=== PATIENT | female | born 1985 | race Native Hawaiian/Other Pacific Islander ===

== ENCOUNTER 2016-08-31 17:31 | Observation (INO) | payer OTHER ==
[~2016-08-31] VITALS: Ht 180.3 cm; Wt 187.3 kg
[~2016-08-31 17:31] MED LIST: ALBU90AE13 INH; ALPR0.2566 PO; AMBIEN5 MG PO; ATEN50TA36 PO; BREO ELLIPTA 101 INH IN; BUDE1AER5 INH; BUME1TAB19 PO; CELEXA10 MG PO; CETI10TA PO; HYDR-2748 PO; HYDR25TA60 PO; LORTAB 10-325 M1 TAB PO; METF100038 OR; MONT10TA PO; PRED10TA27 PO; SPIR25TA66 PO; TOPAMAX25 MG OR; Z-PAK PO
--- NOTE | 2016-08-31 20:56 | NUR ---
ACCESSED PT'S PROGRESS WITH CONTINOUS NEB. BBS;EXP. WHEEZING. HR 132, SPO2 93% ON ROOM AIR. PT HAD JUST AMBULATED FROM USING THE BATHROOM. WILL CONTINUE TO MONITOR PTS PROGRESS.
[2016-08-31] MEDS ORDERED: TRAZ100T OR (22:56)
[2016-08-31 23:15] LABS: PLATELET COUNT 355 K/uL (152-353)
[2016-08-31 23:31] LABS: POTASSIUM 3.6 mmol/L (3.6-5.2); SODIUM 140 mmol/L (136-145)
[2016-09-01 00:36] VITALS: BP 119/72; TEMP 98.1; Ht 180.3 cm; Wt 187.3 kg
--- NOTE | 2016-09-01 01:01 | NUR ---
RESTARTED CONT NEB WITH 250 NS AND 10 UD DUONEB. HR 94, SPO2 93%. CONT TO MONITOR PTS PROGRESS.
[2016-09-01 04:00] VITALS: BP 116/58; TEMP 98.9
--- NOTE | 2016-09-01 04:49 | NUR ---
NO NOTED RESP. DISTRESS. SPO2 95%, HR 93%. BBS:MILD EXP. WHEEZING.
[2016-09-01 06:29] LABS: PLATELET COUNT 325 K/uL (152-353)
[2016-09-01 06:35] LABS: POTASSIUM 3.8 mmol/L (3.6-5.2)
--- NOTE | 2016-09-01 07:49 | NUR ---
PATIENT REASSSED AN PATIENT CLEAR AT THIS TIME AN SATS ARE 93% ON ROOM AIR AND HEARTRATE 111. TREATMENTS TO BE CHANGED TO Q4 AND PRN FOR WHEEZING.
[2016-09-01 07:55] VITALS: BP 114/60; TEMP 97.5
[2016-09-01 12:00] VITALS: BP 119/64; TEMP 97.7
--- NOTE | 2016-09-01 13:08 | NUR ---
IV SITE D/C'D WITH TIP INTACT AND SITE CARE DONE. MEDS CALLED INTO [facility] PER MD ORDERS
--- NOTE | 2016-09-01 13:30 | NUR ---
D/C INSTRUCTIONS GIVEN TO PT AND SHE VERBALIZES UNDERSTANDING. PT OUT AMBULATORY WITH NAD. REFUSES W/C
== END 2016-09-01 13:45 | disposition home or self-care (01) ==
LOC: MED/SURG 17:31
PROVIDERS: ADMIT Family Medicine
DX: J45.901 Unspecified asthma with (acute) exacerbation (principal); E86.0 Dehydration; E66.01 Morbid (severe) obesity due to excess calories
CPT/HCPCS: 36591; 80053; 83735; 85027; 93005; 94644; 94645; 94664; 94760; 96365; 96366; 99220; G0378; G0379; J2930

== ENCOUNTER 2017-01-29 21:24 | Emergency (ER) | payer OTHER ==
[~2017-01-29] VITALS: Ht 180.3 cm; Wt 190.5 kg
[~2017-01-29 21:24] MED LIST changes: +TRAZ100T OR
[2017-01-29 22:14] LABS: PLATELET COUNT 326 K/uL (152-353)
[2017-01-29 22:22] VITALS: BP 148/96; TEMP 98.4
== END 2017-01-29 22:25 | disposition home or self-care (01) ==
LOC: ED 21:24
PROVIDERS: Emergency Medicine
DX: R10.2 Pelvic and perineal pain (principal); Z33.1 Pregnant state, incidental
CPT/HCPCS: 36415; 81000; 84702; 85027; 99283

== ENCOUNTER 2017-03-10 13:45 | Observation (INO) | payer OTHER ==
[~2017-03-10] VITALS: Ht 180.3 cm; Wt 196.4 kg
[2017-03-10 14:33] LABS: PLATELET COUNT 291 K/uL (152-353)
[2017-03-10 14:51] LABS: POTASSIUM 3.9 mmol/L (3.6-5.2); SODIUM 136 mmol/L (136-145)
--- NOTE | 2017-03-10 14:58 | NUR ---
PT TO BE TRANSFERRED TO [facility] IN [place], [place] TO A PERINATOLOGIST. REPORT GIVEN TO SARAH MCKINNEY AT [facility] IN LABOR AND DELIVERY. EMS NOTIFIED OF TRANSFER.
[2017-03-10 15:00] VITALS: BP 130/71; TEMP 98.2; Ht 180.3 cm; Wt 196.4 kg
--- NOTE | 2017-03-10 15:15 | NUR ---
1400 PT SENT OVER FROM [facility] FOR EXAC OF ASTHMA AND 24 WEEKS IUP . PT WILL BE TRANSFERRED TO [facility] WHEN BED AVAILBLE
[2017-03-10 16:00] VITALS: BP 132/71; TEMP 98.2
--- NOTE | 2017-03-10 16:03 | NUR ---
1600 PT LEFT VIA STRECTHER VIA EMS. PT AWAKE ALERT NO DISTRESS NOTED
== END 2017-03-10 16:00 | disposition short-term general hospital (02) ==
LOC: MED/SURG 13:45
PROVIDERS: ADMIT Family Medicine
DX: O99.512 Diseases of the respiratory system complicating pregnancy, second trimester (principal); O12.02 Gestational edema, second trimester; O30.002 Twin pregnancy, unspecified number of placenta and unspecified number of amniotic sacs, second trimester; E86.0 Dehydration; J45.41 Moderate persistent asthma with (acute) exacerbation; J32.9 Chronic sinusitis, unspecified
CPT/HCPCS: 36591; 80053; 85027; 94640; 94664; 96365; 96375; 99220; G0378; G0379; J2930

== ENCOUNTER 2017-09-13 11:08 | Observation (INO) | payer OTHER ==
[~2017-09-13] VITALS: Ht 154.9 cm; Wt 191.0 kg
--- NOTE | 2017-09-13 11:25 | NUR ---
Pt. ADMITTED TO ROOM 1112 C/O WHEEZING AND HAVING TROUBLE BREATHING. STATES THIS POLLEN IS GOING TO KILL ME.
[2017-09-13 15:55] LABS: PLATELET COUNT 484 K/uL (152-353)
[2017-09-13 16:05] LABS: POTASSIUM 3.6 mmol/L (3.6-5.2); SODIUM 134 mmol/L (136-145)
[2017-09-13 20:00] VITALS: BP 142/69; TEMP 99
[2017-09-13 21:17] VITALS: BP 112/65; TEMP 98.1; Ht 154.9 cm; Wt 191.0 kg
[2017-09-14] VITALS: BP 127/78; TEMP 98.1
[2017-09-14 04:00] VITALS: BP 144/93; TEMP 98.3
[2017-09-14 06:42] LABS: PLATELET COUNT 460 K/uL (152-353)
[2017-09-14 07:20] LABS: POTASSIUM 4.4 mmol/L (3.6-5.2)
[2017-09-14 08:00] VITALS: BP 121/78; TEMP 97.7
[2017-09-14 12:00] VITALS: BP 122/77; TEMP 97.7
[2017-09-14 16:00] VITALS: BP 138/53; TEMP 98.6
== END 2017-09-14 18:50 | disposition home or self-care (01) ==
LOC: MED/SURG 11:08
PROVIDERS: ADMIT Family Medicine
DX: J45.901 Unspecified asthma with (acute) exacerbation (principal)
CPT/HCPCS: 36600; 80053; 81000; 82308; 82550; 82805; 82948; 83605; 83735; 83874; 84100; 84484; 85027; 87040; 87804; 93005; 94640; 94644; 94645; 94664; 94760; 96365; 96366; 96375; 99220; G0378; G0379; J2930; J7120

== ENCOUNTER 2018-10-13 18:07 | Outpatient (CLI) | payer OTHER ==
[2018-10-13 18:24] LABS: PLATELET COUNT 433 K/uL (152-353)
[2018-10-13 18:39] LABS: POTASSIUM 3.9 mmol/L (3.6-5.2); SODIUM 139 mmol/L (136-145)
== END 2018-10-13 21:36 | disposition home or self-care (01) ==
LOC: LABW 18:07
PROVIDERS: Family Medicine
DX: R07.9 Chest pain, unspecified (principal)
CPT/HCPCS: 36415; 80053; 82550; 84484; 85027; 93005

== ENCOUNTER 2018-10-19 18:12 | Outpatient (CLI) | payer OTHER | END 2018-10-19 21:30 | disposition home or self-care (01) | LOC: INF 18:12 | DX: E86.0 Dehydration (principal) | CPT/HCPCS: 96360; 96361 ==

== ENCOUNTER 2018-10-20 09:56 | Outpatient (CLI) | payer OTHER ==
[2018-10-20 10:27] LABS: POTASSIUM 4.2 mmol/L (3.6-5.2); SODIUM 140 mmol/L (136-145)
[2018-10-20 12:26] LABS: PLATELET COUNT 409 K/uL (152-353)
== END 2018-10-20 20:30 | disposition home or self-care (01) ==
LOC: LABW 09:56
PROVIDERS: Nurse Practitioner Family
DX: R25.2 Cramp and spasm (principal); R60.0 Localized edema
CPT/HCPCS: 36415; 80053; 82550; 83735; 83880; 84484; 85027

== ENCOUNTER 2018-11-02 10:58 | Emergency (ER) | payer OTHER ==
[~2018-11-02] VITALS: Ht 180.3 cm; Wt 217.3 kg
[2018-11-02 11:10] VITALS: TEMP 97.9
[2018-11-02 12:20] LABS: PLATELET COUNT 461 K/uL (152-353)
[2018-11-02 12:28] LABS: POTASSIUM 3.7 mmol/L (3.6-5.2); SODIUM 139 mmol/L (136-145)
[2018-11-02 14:43] VITALS: BP 138/82
== END 2018-11-02 14:43 | disposition home or self-care (01) ==
LOC: ED 10:58
PROVIDERS: Emergency Medicine
DX: E66.8 Other obesity (principal); M79.604 Pain in right leg; R07.89 Other chest pain
CPT/HCPCS: 36415; 80053; 82550; 82553; 84484; 85027; 85379; 93005; 99283

== ENCOUNTER 2018-11-16 11:56 | Outpatient (CLI) | payer OTHER ==
[~2018-11-16] VITALS: Ht 180.3 cm; Wt 213.6 kg
[2018-11-16 12:40] VITALS: BP 130/74; TEMP 98.6
[2018-11-16 14:00] VITALS: BP 131/66; TEMP 98.3
== END 2018-11-16 15:52 | disposition home or self-care (01) ==
LOC: INF 11:56
DX: A08.4 Viral intestinal infection, unspecified (principal)
CPT/HCPCS: 96360

== ENCOUNTER 2019-05-10 15:41 | Outpatient (CLI) | payer OTHER ==
[~2019-05-10] VITALS: Ht 154.9 cm; Wt 213.2 kg
[2019-05-10 15:48] VITALS: BP 129/72; TEMP 98.4
[2019-05-10 16:10] LABS: POTASSIUM 4.7 mmol/L (3.6-5.2)
== END 2019-05-10 16:55 | disposition home or self-care (01) ==
LOC: INF 15:41
PROVIDERS: Family Medicine
DX: E86.0 Dehydration (principal); R25.2 Cramp and spasm
CPT/HCPCS: 80053; 96360

== ENCOUNTER 2019-09-02 09:36 | Outpatient (CLI) | payer OTHER | END 2019-09-02 19:21 | disposition home or self-care (01) | LOC: RAD 09:36 | DX: S93.401A Sprain of unspecified ligament of right ankle, initial encounter (principal); M25.461 Effusion, right knee ==

== ENCOUNTER 2019-10-27 13:21 | Outpatient (CLI) | payer OTHER ==
[~2019-10-27] VITALS: Ht 152.4 cm; Wt 217.7 kg
== END 2019-10-27 14:30 | disposition home or self-care (01) ==
LOC: INF 13:21
DX: D50.9 Iron deficiency anemia, unspecified (principal)
CPT/HCPCS: 96365; J1439

== ENCOUNTER 2019-11-06 09:17 | Outpatient (CLI) | payer OTHER ==
[~2019-11-06] VITALS: Ht 180.3 cm; Wt 217.7 kg
== END 2019-11-06 10:28 | disposition home or self-care (01) ==
LOC: INF 09:17
DX: D50.9 Iron deficiency anemia, unspecified (principal)
CPT/HCPCS: 96365; J1439

== ENCOUNTER 2020-01-09 14:15 | Outpatient (CLI) | payer OTHER | END 2020-01-09 22:34 | disposition home or self-care (01) | LOC: RAD 14:15 | DX: R05 Cough (principal) ==

== ENCOUNTER 2020-02-29 15:12 | Outpatient (CLI) | payer OTHER | END 2020-02-29 22:08 | disposition home or self-care (01) | LOC: US 15:12 | DX: I89.0 Lymphedema, not elsewhere classified (principal); R94.39 Abnormal result of other cardiovascular function study ==

== ENCOUNTER 2020-06-03 12:00 | Outpatient (CLI) | payer OTHER ==
[2020-06-04] MEDS ORDERED: HYDR200T3 PO (14:02)
[2020-06-04] MEDS ORDERED: DULOXETINE HCL30 MG PO (14:06)
[2020-06-04] MEDS ORDERED: TOPIRAMATE50 MG PO (14:08)
[2020-06-04] MEDS ORDERED: LORATADINE10 M1 PO (14:12)
[2020-06-04] MEDS ORDERED: LOSA50TA PO (14:15)
[2020-06-04] MEDS ORDERED: TRAMADOL HYDROC50 MG PO (14:17)
== END 2020-06-03 22:13 | disposition home or self-care (01) ==
LOC: RAD 12:00
PROVIDERS: ATTEND Family Medicine
DX: R05 Cough (principal)

== ENCOUNTER 2020-06-04 10:16 | Observation (INO) | payer OTHER ==
[~2020-06-04] VITALS: Ht 182.9 cm; Wt 225.6 kg
[2020-06-04 11:34] LABS: PLATELET COUNT 344 K/uL (152-353)
[2020-06-04 11:39] VITALS: BP 174/84; TEMP 98.4; Ht 182.9 cm; Wt 225.6 kg
[2020-06-04 11:45] LABS: POTASSIUM 4.3 mmol/L (3.6-5.2)
[2020-06-04 12:00] VITALS: BP 158/91; TEMP 98.4
[2020-06-04 14:00] VITALS: BP 159/91; TEMP 98.4
[2020-06-04] MEDS ORDERED: HYDR200T3 PO (14:02)
[2020-06-04] MEDS ORDERED: DULOXETINE HCL30 MG PO (14:06)
[2020-06-04] MEDS ORDERED: TOPIRAMATE50 MG PO (14:08)
[2020-06-04] MEDS ORDERED: LORATADINE10 M1 PO (14:12)
[2020-06-04] MEDS ORDERED: LOSA50TA PO (14:15)
[2020-06-04] MEDS ORDERED: TRAMADOL HYDROC50 MG PO (14:17)
[2020-06-04 19:55] VITALS: BP 140/76; TEMP 98.7
[2020-06-04 23:41] VITALS: BP 143/84; TEMP 98.7
[2020-06-05 04:00] VITALS: BP 140/89; TEMP 98.1
[2020-06-05 08:00] VITALS: BP 160/100; TEMP 97.9
[2020-06-05 08:34] LABS: PLATELET COUNT 356 K/uL (152-353)
[2020-06-05 08:52] LABS: POTASSIUM 4.6 mmol/L (3.6-5.2)
[2020-06-05 12:00] VITALS: BP 150/95; TEMP 97.8
[2020-06-05 16:00] VITALS: BP 102/62; TEMP 98.2
[2020-06-06] VITALS: BP 120/77; TEMP 97.8
[2020-06-06 04:00] VITALS: BP 146/86; TEMP 98.5
[2020-06-06 08:00] VITALS: BP 120/61; TEMP 98.1
[2020-06-06 10:38] LABS: PLATELET COUNT 329 K/uL (152-353)
[2020-06-06 11:18] LABS: POTASSIUM 4.3 mmol/L (3.6-5.2)
[2020-06-06 12:00] VITALS: BP 171/97; TEMP 97.7
== END 2020-06-06 15:30 | disposition home or self-care (01) ==
LOC: MED/SURG 10:16
PROVIDERS: ADMIT Family Medicine; ATTEND Family Medicine
DX: J44.1 Chronic obstructive pulmonary disease with (acute) exacerbation (principal); E11.9 Type 2 diabetes mellitus without complications; M32.8 Other forms of systemic lupus erythematosus; F17.200 Nicotine dependence, unspecified, uncomplicated; I10 Essential (primary) hypertension; E66.01 Morbid (severe) obesity due to excess calories; F31.89 Other bipolar disorder; Z91.19 Patient's noncompliance with other medical treatment and regimen; R60.9 Edema, unspecified
CPT/HCPCS: 36600; 80053; 82805; 82948; 83036; 83735; 84100; 84702; 85027; 85379; 86140; 87040; 87070; 87077; 87186; 87205; 93005; 94640; 94644; 94664; 94667; 94668; 94760; 96372; 96374; 96375; 99220; G0378; G0379; J1650; J1885; J1940; J2920; J3490

== ENCOUNTER 2020-08-02 11:34 | Outpatient (CLI) | payer OTHER ==
[~2020-08-02 11:34] MED LIST changes: +DULOXETINE HCL30 MG PO; +HYDR200T3 PO; +LORATADINE10 M1 PO; +LOSA50TA PO; +TOPIRAMATE50 MG PO; +TRAMADOL HYDROC50 MG PO
== END 2020-08-02 23:04 | disposition home or self-care (01) ==
LOC: RAD 11:34
PROVIDERS: ATTEND Nurse Practitioner Family
DX: M54.2 Cervicalgia (principal); M54.5 Low back pain; V87.7XXA Person injured in collision between other specified motor vehicles (traffic), initial encounter

== ENCOUNTER 2021-03-03 10:32 | Outpatient (CLI) | payer OTHER ==
[2021-03-03 11:11] LABS: PLATELET COUNT 327 K/uL (152-353)
== END 2021-03-03 21:14 | disposition home or self-care (01) ==
LOC: RAD 10:32
PROVIDERS: ATTEND Family Medicine
DX: Z03.89 Encounter for observation for other suspected diseases and conditions ruled out (principal)
CPT/HCPCS: 36415; 82728; 85027; 85379; 86140

== ENCOUNTER 2021-03-05 15:42 | Outpatient (CLI) | payer OTHER | END 2021-03-05 23:00 | disposition home or self-care (01) | LOC: RAD 15:42 | PROVIDERS: ATTEND Nurse Practitioner Family | DX: Z03.89 Encounter for observation for other suspected diseases and conditions ruled out (principal) ==

== ENCOUNTER 2021-07-21 10:33 | Outpatient (CLI) | payer OTHER | END 2021-07-21 20:24 | disposition home or self-care (01) | LOC: RAD 10:33 | PROVIDERS: ATTEND Nurse Practitioner Family | DX: U07.1 COVID-19 (principal) ==

== ENCOUNTER 2021-09-25 17:28 | Observation (INO) | payer OTHER ==
[~2021-09-25] VITALS: Ht 180.3 cm; Wt 230.4 kg
[~2021-09-25 17:28] MED LIST changes: +DULO60CA2 PO; -DULOXETINE HCL30 MG PO; -TRAZ100T OR; +TRAZODONE HYDRO50 MG PO
[2021-09-25 18:27] LABS: PLATELET COUNT 374 K/uL (152-353)
[2021-09-25 18:28] VITALS: BP 124/71; TEMP 99.1; Ht 180.3 cm; Wt 230.4 kg
[2021-09-25 18:44] LABS: POTASSIUM 3.8 mmol/L (3.6-5.2)
[2021-09-25 18:56] LABS: PARTIAL THROMBOPLASTIN TIME 24.8 SECONDS (24.5-33.6)
[2021-09-25 20:00] VITALS: BP 145/90; TEMP 98
[2021-09-26] VITALS: BP 112/61; TEMP 98.3
[2021-09-26 04:00] VITALS: BP 101/68; TEMP 97.4
[2021-09-26 08:00] VITALS: BP 127/80; TEMP 98
[2021-09-26 12:00] VITALS: BP 121/76; TEMP 98.3
[2021-09-26] MEDS ORDERED: BUSPIRONE HYDR7.5 MG PO (13:00)
[2021-09-26] MEDS ORDERED: HYDR10TA47 PO (13:01)
[2021-09-26] MEDS ORDERED: XYZAL ALLERGY 245 MG PO (13:01)
[2021-09-26] MEDS ORDERED: PULMICORT180 MCG/AC INH (13:03)
[2021-09-26] MEDS ORDERED: ALBUTEROL0.083 % INH (13:04)
[2021-09-26 16:00] VITALS: BP 134/85; TEMP 98.1
== END 2021-09-26 18:05 | disposition home or self-care (01) ==
LOC: MED/SURG 17:28
PROVIDERS: ADMIT Family Medicine; ATTEND Family Medicine
DX: R07.89 Other chest pain (principal); E11.9 Type 2 diabetes mellitus without complications; I10 Essential (primary) hypertension; M32.8 Other forms of systemic lupus erythematosus; N30.01 Acute cystitis with hematuria; J45.998 Other asthma
CPT/HCPCS: 36415; 80053; 82550; 83880; 84484; 85027; 85610; 85730; 87635; 93005; 94640; 94664; 94760; 99220; G0378; G0379; J0696; J1650; U0003

== ENCOUNTER 2021-10-28 09:20 | Outpatient (CLI) | payer OTHER ==
[~2021-10-28 09:20] MED LIST changes: +ALBUTEROL0.083 % INH; +BUSPIRONE HYDR7.5 MG PO; +HYDR10TA47 PO; +PULMICORT180 MCG/AC INH; +XYZAL ALLERGY 245 MG PO
== END 2021-10-28 19:41 | disposition home or self-care (01) ==
LOC: RAD 09:20
PROVIDERS: ATTEND Family Medicine
DX: M25.561 Pain in right knee (principal); M25.562 Pain in left knee; M25.552 Pain in left hip

== ENCOUNTER 2022-03-24 08:18 | Emergency (ER) | payer OTHER ==
[~2022-03-24] VITALS: Ht 180.3 cm; Wt 236.3 kg
[2022-03-24 08:18] VITALS: TEMP 97.8
[2022-03-24 08:42] LABS: PLATELET COUNT 359 K/uL (152-353)
[2022-03-24 09:09] LABS: POTASSIUM 3.8 mmol/L (3.6-5.2); SODIUM 141 mmol/L (136-145)
[2022-03-24 09:18] VITALS: BP 110/58
== END 2022-03-24 09:50 | disposition home or self-care (01) ==
LOC: ED 08:18
PROVIDERS: Emergency Medicine
DX: E11.65 Type 2 diabetes mellitus with hyperglycemia (principal); Z79.84 Long term (current) use of oral hypoglycemic drugs; R60.0 Localized edema; R79.89 Other specified abnormal findings of blood chemistry
CPT/HCPCS: 36415; 36600; 80053; 81000; 82805; 83880; 84484; 85027; 93005; 96374; 99284; J1940

== ENCOUNTER 2022-07-24 09:34 | Outpatient (CLI) | payer OTHER ==
[2022-07-24 10:03] LABS: PLATELET COUNT 378 K/uL (152-353)
[2022-07-24 10:09] LABS: POTASSIUM 4.1 mmol/L (3.6-5.2)
== END 2022-07-24 19:13 | disposition home or self-care (01) ==
LOC: LABW 09:34
PROVIDERS: ATTEND Nurse Practitioner Family
DX: R82.4 Acetonuria (principal)
CPT/HCPCS: 36415; 36600; 80053; 82805; 85027

== ENCOUNTER 2022-07-27 08:24 | Emergency (ER) | payer OTHER ==
[~2022-07-27] VITALS: Ht 180.3 cm; Wt 228.2 kg
[2022-07-27 09:14] LABS: PLATELET COUNT 362 K/uL (152-353)
[2022-07-27 09:19] LABS: POTASSIUM 4.1 mmol/L (3.6-5.2); SODIUM 140 mmol/L (136-145)
[2022-07-27 10:47] LABS: PARTIAL THROMBOPLASTIN TIME 25.2 SECONDS (24.5-33.6)
[2022-07-27 12:47] VITALS: BP 138/83; TEMP 93
== END 2022-07-27 12:47 | disposition short-term general hospital (02) ==
LOC: ED 08:24
PROVIDERS: Emergency Medicine Emergency Medical Services
DX: I20.0 Unstable angina (principal); I10 Essential (primary) hypertension; F17.210 Nicotine dependence, cigarettes, uncomplicated
CPT/HCPCS: 80053; 81002; 81025; 83735; 83880; 84484; 85027; 85379; 85610; 85730; 93005; 94664; 96372; 99285; J1650

== ENCOUNTER 2022-09-15 11:07 | Outpatient (CLI) | payer OTHER ==
[~2022-09-15] VITALS: Ht 180.3 cm; Wt 225.0 kg
[2022-09-15 11:13] VITALS: BP 162/93; TEMP 98.4
[2022-09-16] MEDS ORDERED: TIZANIDINE HYDRO2 M1 PO (10:15)
[2022-09-16] MEDS ORDERED: FERROUS SULF325 M1 PO (10:16)
[2022-09-16] MEDS ORDERED: KEPPRA XR500 MG PO (10:17)
[2022-09-16] MEDS ORDERED: OMEPRAZOLE DR20 MG PO (10:17)
[2022-09-16] MEDS ORDERED: METO25TA4 PO (10:18)
[2022-09-16] MEDS ORDERED: MONT10TA PO (10:18)
[2022-09-16] MEDS ORDERED: METF500T PO (10:19)
[2022-09-16] MEDS ORDERED: PANTOPRAZOLE 40MG TA PO (10:19)
[2022-09-16] MEDS ORDERED: CITA20TA2 PO (10:20)
[2022-09-16] MEDS ORDERED: FAMO20TA4 PO (10:20)
[2022-09-16] MEDS ORDERED: BUSPIRONE5 MG PO (10:21)
[2022-09-16] MEDS ORDERED: BAYER ASPIRIN E81 MG PO (10:22)
[2022-09-16] MEDS ORDERED: VITAMIN C500 M7 PO (10:43)
== END 2022-09-15 19:27 | disposition home or self-care (01) ==
LOC: INF 11:07
PROVIDERS: ATTEND Family Medicine
DX: D50.9 Iron deficiency anemia, unspecified (principal)
CPT/HCPCS: 96365; J1756

== ENCOUNTER 2022-09-15 15:35 | Observation (INO) | payer OTHER ==
[~2022-09-15] VITALS: Ht 180.3 cm; Wt 225.4 kg
[2022-09-15] VITALS (11 sets, daily range): BP systolic 124–232; BP diastolic 73–110; TEMP 98–98.4; Ht 180.3 cm; Wt 225.4 kg
[2022-09-15 16:02] LABS: PLATELET COUNT 439 K/uL (152-353)
[2022-09-15 16:08] LABS: POTASSIUM 3.5 mmol/L (3.6-5.2); SODIUM 141 mmol/L (136-145)
[2022-09-15 16:16] LABS: PARTIAL THROMBOPLASTIN TIME 26.7 SECONDS (24.5-33.6)
[2022-09-16 04:00] VITALS: BP 122/70; TEMP 97.8
[2022-09-16 08:00] VITALS: BP 118/73; TEMP 97.6
[2022-09-16] MEDS ORDERED: TIZANIDINE HYDRO2 M1 PO (10:15)
[2022-09-16] MEDS ORDERED: FERROUS SULF325 M1 PO (10:16)
[2022-09-16] MEDS ORDERED: KEPPRA XR500 MG PO (10:17)
[2022-09-16] MEDS ORDERED: OMEPRAZOLE DR20 MG PO (10:17)
[2022-09-16] MEDS ORDERED: MONT10TA PO (10:18)
[2022-09-16] MEDS ORDERED: METO25TA4 PO (10:18)
[2022-09-16] MEDS ORDERED: METF500T PO (10:19)
[2022-09-16] MEDS ORDERED: PANTOPRAZOLE 40MG TA PO (10:19)
[2022-09-16] MEDS ORDERED: CITA20TA2 PO (10:20)
[2022-09-16] MEDS ORDERED: FAMO20TA4 PO (10:20)
[2022-09-16] MEDS ORDERED: BUSPIRONE5 MG PO (10:21)
[2022-09-16] MEDS ORDERED: BAYER ASPIRIN E81 MG PO (10:22)
[2022-09-16] MEDS ORDERED: VITAMIN C500 M7 PO (10:43)
== END 2022-09-16 12:00 | disposition home or self-care (01) ==
LOC: ED 15:35 → MED/SURG 18:20
PROVIDERS: ADMIT Emergency Medicine; ATTEND Internal Medicine
DX: R07.89 Other chest pain (principal); R06.02 Shortness of breath; R00.2 Palpitations; I10 Essential (primary) hypertension; F31.89 Other bipolar disorder; E66.01 Morbid (severe) obesity due to excess calories; Z68.44 Body mass index [BMI] 60.0-69.9, adult; M32.8 Other forms of systemic lupus erythematosus; D50.8 Other iron deficiency anemias; E11.69 Type 2 diabetes mellitus with other specified complication
CPT/HCPCS: 36415; 80053; 80307; 81002; 82550; 82948; 84443; 84484; 85027; 85379; 85610; 85730; 93005; 96361; 96372; 96374; 96375; 99220; 99284; G0378; J1650; J2270; J2405; J3490

== ENCOUNTER 2022-10-27 10:15 | Observation (INO) | payer OTHER ==
[~2022-10-27] VITALS: Ht 180.3 cm; Wt 218.2 kg
[~2022-10-27 10:15] MED LIST changes: +BAYER ASPIRIN E81 MG PO; +BUSPIRONE5 MG PO; +CITA20TA2 PO; +FAMO20TA4 PO; +FERROUS SULF325 M1 PO; +KEPPRA XR500 MG PO; +METF500T PO; +METO25TA4 PO; +OMEPRAZOLE DR20 MG PO; +PANTOPRAZOLE 40MG TA PO; +TIZANIDINE HYDRO2 M1 PO; +VITAMIN C500 M7 PO
[2022-10-27 10:30] VITALS: BP 144/103; TEMP 97.6
[2022-10-27 11:07] LABS: POTASSIUM 4.3 mmol/L (3.6-5.2)
[2022-10-27 11:09] LABS: PLATELET COUNT 338 K/uL (152-353)
[2022-10-27 13:11] VITALS: BP 125/84; TEMP 97.8; Ht 180.3 cm; Wt 218.2 kg
[2022-10-27] MEDS ORDERED: ALBUTEROL0.083 % INH (15:15)
[2022-10-27] MEDS ORDERED: CLARITIN10 M1 PO (15:17)
[2022-10-27] MEDS ORDERED: PROAIR HFA108 MCG/AC INH (15:42)
[2022-10-27] MEDS ORDERED: MONT10TA PO (15:42)
[2022-10-27] MEDS ORDERED: MOUNJARO INJ (15:45)
[2022-10-27 15:59] VITALS: BP 131/87; TEMP 98.1
[2022-10-27 19:48] VITALS: BP 139/71; TEMP 98.7
[2022-10-27 23:31] VITALS: BP 107/54; TEMP 98.5
[2022-10-28 04:00] VITALS: BP 107/59; TEMP 96
[2022-10-28 05:41] LABS: PLATELET COUNT 303 K/uL (152-353)
[2022-10-28 05:59] LABS: POTASSIUM 4.3 mmol/L (3.6-5.2)
[2022-10-28 08:00] VITALS: BP 145/67; TEMP 97.6
[2022-10-28 12:00] VITALS: BP 121/68; TEMP 98.2
[2022-10-28 16:00] VITALS: BP 121/75; TEMP 97.5
[2022-10-28 20:00] VITALS: BP 122/75; TEMP 97.8
[2022-10-29] VITALS: BP 112/63; TEMP 97.8
[2022-10-29 04:00] VITALS: BP 111/63; TEMP 97.4
[2022-10-29 08:00] VITALS: BP 128/75; TEMP 97.3
[2022-10-29] MEDS ORDERED: BUDE1AER3 INH (08:56)
== END 2022-10-29 11:50 | disposition home or self-care (01) ==
LOC: ED 10:15 → MED/SURG 11:43
PROVIDERS: Emergency Medicine; ADMIT Internal Medicine; ATTEND Internal Medicine
DX: J45.21 Mild intermittent asthma with (acute) exacerbation (principal); Z72.0 Tobacco use; E11.9 Type 2 diabetes mellitus without complications; I10 Essential (primary) hypertension; K21.9 Gastro-esophageal reflux disease without esophagitis; R06.02 Shortness of breath; Z79.4 Long term (current) use of insulin
CPT/HCPCS: 36415; 80053; 81000; 82948; 83880; 85027; 85379; 94664; 94760; 96365; 96367; 96368; 96372; 96375; 96376; 99221; 99284; G0378; J0456; J1815; J2405; J2930

== ENCOUNTER 2022-11-26 16:13 | Observation (INO) | payer OTHER ==
[~2022-11-26] VITALS: Ht 177.8 cm; Wt 213.8 kg
[~2022-11-26 16:13] MED LIST changes: +BUDE1AER3 INH; +CLARITIN10 M1 PO; +MOUNJARO INJ; +PROAIR HFA108 MCG/AC INH
[2022-11-26 19:05] LABS: PLATELET COUNT 307 K/uL (152-353)
[2022-11-26 19:16] LABS: POTASSIUM 3.2 mmol/L (3.6-5.2)
[2022-11-26 20:21] VITALS: BP 112/57; TEMP 98.9; Ht 177.8 cm; Wt 213.8 kg
[2022-11-26 20:44] VITALS: BP 130/70; TEMP 99.5
[2022-11-27 00:26] VITALS: BP 105/59; TEMP 98.9
[2022-11-27 04:00] VITALS: BP 96/49; TEMP 98
[2022-11-27 08:00] VITALS: BP 96/58; TEMP 97.7
[2022-11-27] MEDS ORDERED: 904272561 PO (09:47)
[2022-11-27] MEDS ORDERED: PROMETHAZINE HY25 MG PO (09:48)
[2022-11-27] MEDS ORDERED: FAMO20TA4 PO (09:49)
[2022-11-27 12:00] VITALS: BP 125/77; TEMP 98.5
== END 2022-11-27 15:58 | disposition home or self-care (01) ==
LOC: MED/SURG 16:13
PROVIDERS: ADMIT Family Medicine; ATTEND Family Medicine
DX: R11.2 Nausea with vomiting, unspecified (principal); R19.7 Diarrhea, unspecified; E86.0 Dehydration; E66.01 Morbid (severe) obesity due to excess calories; Z68.44 Body mass index [BMI] 60.0-69.9, adult; I10 Essential (primary) hypertension; E11.9 Type 2 diabetes mellitus without complications; M32.8 Other forms of systemic lupus erythematosus; Z72.0 Tobacco use
CPT/HCPCS: 36415; 80053; 80307; 81002; 82272; 83630; 85027; 87015; 87040; 87045; 87324; 87328; 87329; 87338; 87449; 87502; 87635; 87899; 94664; 94760; 96360; 96361; 96366; 96376; 99220; 99221; G0378; G0379; J2405; J7040; U0003

== ENCOUNTER 2023-02-11 06:46 | Observation (INO) | payer OTHER ==
[~2023-02-11] VITALS: Ht 180.3 cm; Wt 211.4 kg
[2023-02-11] VITALS (8 sets, daily range): BP systolic 109–152; BP diastolic 55–91; TEMP 96.8–98.6; Ht 180.3 cm; Wt 211.4 kg
[~2023-02-11 06:46] MED LIST changes: +904272561 PO; +PROMETHAZINE HY25 MG PO
[2023-02-11 07:55] LABS: PLATELET COUNT 333 K/uL (152-353)
[2023-02-11] MEDS ORDERED: MUPI2OIN2 TOP (13:50)
[2023-02-11] MEDS ORDERED: PROMETHAZINE W/CODEI PO (13:54)
[2023-02-11] MEDS ORDERED: BUDE1AER5 INH (13:58)
[2023-02-11] MEDS ORDERED: TRELEGY ELLIPTA1 AER PO (13:58)
[2023-02-11] MEDS ORDERED: IPRASOL5 INH (13:59)
[2023-02-12 04:00] VITALS: BP 122/50; TEMP 96.4
[2023-02-12 07:28] LABS: PLATELET COUNT 277 K/uL (152-353)
[2023-02-12 08:00] VITALS: BP 133/78; TEMP 97.7
[2023-02-12 12:00] VITALS: BP 109/79; TEMP 97.8
[2023-02-12] MEDS ORDERED: CLINDAMYCIN HY150 MG PO (14:24)
[2023-02-12] MEDS ORDERED: MEDROL DOSEPAK4 MG PO (14:27)
== END 2023-02-12 16:20 | disposition home or self-care (01) ==
LOC: ED 06:46 → MED/SURG 09:46
PROVIDERS: ADMIT Family Medicine; ATTEND Internal Medicine
DX: L03.115 Cellulitis of right lower limb (principal); J45.901 Unspecified asthma with (acute) exacerbation; F17.210 Nicotine dependence, cigarettes, uncomplicated; R06.09 Other forms of dyspnea; E11.9 Type 2 diabetes mellitus without complications; K21.9 Gastro-esophageal reflux disease without esophagitis; I10 Essential (primary) hypertension; F31.89 Other bipolar disorder
CPT/HCPCS: 36600; 80048; 80053; 81025; 82805; 82948; 85027; 87040; 87502; 87635; 87651; 94664; 94760; 96365; 96366; 96367; 96372; 96375; 99221; 99284; G0378; J0171; J0696; J1650; J2920; J2930; J3370; U0003

== ENCOUNTER 2023-08-03 09:57 | Outpatient (CLI) | payer OTHER, BC ==
[~2023-08-03 09:57] MED LIST changes: +CLINDAMYCIN HY150 MG PO; +IPRASOL5 INH; +MEDROL DOSEPAK4 MG PO; +MUPI2OIN2 TOP; +PROMETHAZINE W/CODEI PO; +TRELEGY ELLIPTA1 AER PO
== END 2023-08-03 19:28 | disposition home or self-care (01) ==
LOC: RAD 09:57
PROVIDERS: ATTEND Nurse Practitioner Family
DX: M54.17 Radiculopathy, lumbosacral region (principal)